=== PATIENT | male | born 1990 | race Caucasian/White ===

== ENCOUNTER 2017-05-25 12:34 | Emergency (ER) | payer SELFPAY ==
[~2017-05-25] VITALS: Ht 172.7 cm; Wt 98.6 kg
[2017-05-25 12:45] VITALS: BP 140/103
--- NOTE | 2017-05-25 12:48 | NUR ---
PT AMBULATES TO CHAIR E
--- NOTE | 2017-05-25 13:09 | NUR ---
27Y/M C/O LT LOWER TOOTH ACHE X 3 DAYS WITH LT EAR ACHE AND HEAD ACHE; TOOK TYLENOL, ADVIL WITH NO RELIEF.PATIENT STATES PAIN OF 10/10 AT THIS TIME; PATIENT POSITIONED FOR COMFORT; ER MD MADE AWARE OF PT STATUS.
--- NOTE | 2017-05-25 13:10 | NUR ---
Patient being evaluated by physician at bedside.
[2017-05-25 13:58] VITALS: BP 139/99
--- NOTE | 2017-05-25 13:58 | NUR ---
Patient discharged with v/s stable. Written and verbal after care instructions given and explained. Patient alert, oriented and verbalized understanding of instructions. Ambulatory with steady gait. All questions addressed prior to discharge. ID band removed. Patient advised to follow up with PMD. Rx of TRAMADOL, AMOXICILLIN given. Patient educated on indication of medication including possible reaction and side effects. Opportunity to ask questions provided and answered.
== END 2017-05-25 13:58 | disposition home or self-care (01) ==
LOC: MED 12:34
DX: K04.7 Periapical abscess without sinus (principal)
CPT/HCPCS: 99283

== ENCOUNTER 2017-07-28 16:27 | Emergency (ER) | payer MEDICAID ==
[~2017-07-28] VITALS: Ht 170.2 cm; Wt 95.3 kg
--- NOTE | 2017-07-28 16:36 | NUR ---
PT AMBULATES TO BED 4
[2017-07-28 16:38] VITALS: BP 133/67
--- NOTE | 2017-07-28 16:46 | NUR ---
27/M BIB possible insect bite to left 4th digit x 3 days. pt states his stepmother drained digit yesterday, noted purulent drainage and she then applied aloe vera. redness swelling to mid finger knuckle---<3 sec cap refill.AAOX4 WITH EVEN AND STEADY GAIT; LUNGS CLEAR BL; HR EVEN AND REGULAR; PAIN 4/10 AT THIS TIME. PATIENT POSITIONED FOR COMFORT; HOB ELEVATED; BEDRAILS UP X2; BED DOWN. ER MD MADE AWARE OF PT STATUS.
--- NOTE | 2017-07-28 16:54 | NUR ---
Patient being evaluated by DR LAMBERT at bedside.
[2017-07-28] MEDS ORDERED: CLINDAMYCIN 150 MG CAP PO ONE (17:05)
[2017-07-28 17:19] VITALS: BP 133/67
--- NOTE | 2017-07-28 17:20 | NUR ---
Patient discharged with v/s stable. Written and verbal after care instructions given and explained. Patient verbalized understanding. Ambulatory with steady gait. All questions addressed prior to discharge. Advised to follow up with PMD.
== END 2017-07-28 17:20 | disposition home or self-care (01) ==
LOC: MED 16:27
DX: L03.012 Cellulitis of left finger (principal)
CPT/HCPCS: 90471; 90715; 99283

== ENCOUNTER 2017-07-31 13:11 | Emergency (ER) | payer MEDICAID ==
[~2017-07-31] VITALS: Ht 170.2 cm; Wt 95.3 kg
[2017-07-31 14:42] VITALS: BP 132/73
--- NOTE | 2017-07-31 14:45 | NUR ---
27M BIB SELF WITH C/O LEFT 4TH DIGIT PAIN SWELLING AND REDNESS D/T CELLUTIS. PT SEEN IN OUR ER 07/28/2017 SAME COMPLAINT. PT STATES HAS NOT BEEN UNABLE TO FILL RX DUE TO NO FUNDS AND NO TIME TO RETURN. PT C/O WORSENING SYMPTOMS, BODYACHES, N/V/D, AND SUBJECTIVE FEVER. PT IS AOX4 WITH STEADY GAIT. RR ARE EVEN AND UNLABORED. VSS. AWAITING ER MD FU. ALL NEEDS MET ATHIS TIME. WILL CONTINUE TO MONITOR.
[2017-07-31 16:40] VITALS: BP 132/73
== END 2017-07-31 16:41 | disposition home or self-care (01) ==
LOC: MED 13:11
DX: A08.4 Viral intestinal infection, unspecified (principal); L03.012 Cellulitis of left finger; R09.89 Other specified symptoms and signs involving the circulatory and respiratory systems; Z88.8 Allergy status to other drugs, medicaments and biological substances
CPT/HCPCS: 99282; 99283